=== PATIENT | male | born 1990 | race African-American/Black ===

== ENCOUNTER 2024-10-22 09:07 | Outpatient (REF) | payer OTHER, SELFPAY ==
[2024-10-22 13:16] LABS: MANUAL DIFF FLAG NO
[2024-10-22 13:23] LABS: Appearance Urine Clear; Glucose Urine UA Negative (Negative); PH 5.0 (5.0-9.0); Specific Gravity - Urine 1.020 (1.005-1.025)
[2024-10-22 13:31] LABS: Hematocrit 44.9 % (42.0-52.0); Hemoglobin 14.4 g/dl (14.0-18.0); Imm Gran Abs Auto 0.03 X10*3/uL (0.00-0.03); Imm Gran Pct Auto 0.3 % (0.0-0.4); Lymphocytes Absolute Auto 2.9 X10*3/uL (1.2-4.9); Mean Corpuscular HGB Conc 32.1 g/dl (31.0-36.0); Mean Corpuscular Hemoglobin 27.3 pg (27.0-33.0); Mean Corpuscular Volume 85.2 fL (80.0-98.0); NRBC Abs Auto 0.000 X10*3/uL (0.0-0.012); NRBC Pct Auto 0.0 /100WBC (0.0-0.2); Platelet Count 323 X10*3/uL (160-400); Red Blood Count 5.27 X10*6/uL (4.60-5.80); White Blood Count 9.6 X10*3/uL (4.8-10.8)
[2024-10-22 14:01] LABS: Alanine Aminotransferase 40 U/L (0-40); Albumin Level 4.7 g/dL (3.5-5.0); Alkaline Phosphatase 60 U/L (39-117); Anion Gap 14 (12-20); Aspartate Amino Transferase 37 U/L (5-37); Blood Urea Nitrogen 16 mg/dL (9-16); Calcium 9.4 mg/dL (8.4-10.2); Carbon Dioxide 27 mmol/L (22-29); Chloride 103 mmol/L (96-108); Cholesterol 233 mg/dL (<200); Estimated Glomerular Filt Rate > 60; HDL Cholesterol 55 mg/dL (>40); Potassium 4.5 mmol/L (3.3-5.1); Sodium 139 mmol/L (135-145); Total Protein 8.1 g/dL (6.5-8.0); Triglycerides 180 mg/dL (<150)
[2024-10-22 14:42] LABS: Free T4 (Free Thyroxine) 1.17 ng/dL (0.71-1.85)
[2024-10-22 15:30] LABS: CT PCR Urine NOT DETECTED (Not Detect.); NG PCR Urine NOT DETECTED (Not Detect.)
[2024-10-25 03:38] LABS: Syphilis Screen Nonreactive (Nonreactive)
[2024-10-25 03:51] LABS: HBS Num1 52.14 mIU/mL (0-7.99); HBsAGNum1 0.48 S/CO (0.00-0.99); HIV Num 1 0.05 S/CO (0.00-0.99); Hepatitis B Surface Antigen Negative (Negative); ~HepC Num1 0.12 S/CO (0.00-0.79); ~Hepatitis B Surface Antibody REACTIVE (Nonreactive); ~Hepatitis C Antibody Nonreactive (Nonreactive)
[2024-10-30 12:13] LABS: Chlamydia Pneumoniae Interp. Past Infection; Chlamydia Trachomatis IgA <1:16 titer (<1:16)
== END 2024-10-22 09:08 | disposition home or self-care (01) ==
LOC: HO.HKASLDS 09:07
PROVIDERS: PCP Student in an Organized Health Care Education/Training Program; Visit Provider Student in an Organized Health Care Education/Training Program
DX: Z00.00 Encounter for general adult medical examination without abnormal findings (principal); Z01.89 Encounter for other specified special examinations; Z13.9 Encounter for screening, unspecified; Z13.6 Encounter for screening for cardiovascular disorders; Z13.1 Encounter for screening for diabetes mellitus; Z13.220 Encounter for screening for lipoid disorders; J45.20 Mild intermittent asthma, uncomplicated; F41.1 Generalized anxiety disorder; E73.9 Lactose intolerance, unspecified; F12.90 Cannabis use, unspecified, uncomplicated; E66.812 Obesity, class 2; Z87.891 Personal history of nicotine dependence; Z68.37 Body mass index [BMI] 37.0-37.9, adult
CPT/HCPCS: 80053; 80061; 81003; 83036; 84439; 84443; 85025; 86631; 86632; 86706; 86780; 86803; 87340; 87389; 87491; 87591; 96160

== ENCOUNTER 2024-10-22 09:07 | Outpatient (AMB) | payer OTHER, SELFPAY ==
--- NOTE | 2024-10-22 09:19 | A.OFFPC_ITS ---
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 lab work requested. also mention acid reflect after meals more when eat dairy foods. 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 Accompanied by: Self / Same As Patient Allergies No Known Allergies Allergy (Verified 10/22/24 09:19) Tobacco use date assessed: 10/22/24 Dental Screening Dental Screen Date: 10/22/24 Did you have a dental visit in the last 12 months?: Yes Did you have a dental problem in the last 6 months where you did not have access to dental care?: No Was dental information given to patient?: Patient has dentist HPI HPI Comments History of Present Illness Details History of Present Illness The patient is a 34-year-old male presenting for a routine checkup and management of asthma and gastrointestinal symptoms. The patient has a history of asthma since , with exacerbations triggered by exposure to cats and cold weather. He had a recent emergency room visit in [place] after [place] due to an asthma exacerbation. He currently does not have any inhalers and requires a rescue inhaler for management. The patient reports gastrointestinal discomfort, particularly bloating and gas, after consuming dairy products, suggesting possible lactose intolerance. Symptoms typically occur hours after consumption and do not include diarrhea. The patient has been diagnosed with generalized anxiety disorder and is currently under treatment with buspirone, which he started today. He experiences social anxiety and has recently moved from [place] to [place] to access psychiatric care. He is scheduled to follow up with his psychiatrist next Friday to assess the effectiveness of the medication. Review of Systems - Respiratory: Reports asthma exacerbati ons triggered by cats and cold weather. Denies current dyspnea or wheezing. - Gastrointestinal: Reports bloating and gas after dairy consumption. Denies diarrhea. - Psychiatric: Reports anxiety and socia l anxiety. Denies depression. 10-point ROS reviewed and negative excep t as noted in HPI Physical Exam Gen: NAD, A&O x3 HEENT: NC/AT, PERRLA, EOMI, OP clear, MMM Neck: Supple, no LAD/JVD/bruit COR: RRR, S1 S2, no m/r/g Lungs: CTAB, BS equal bilat, no r/r/w Abd: NT/ND, +BS, no HSM, no mass/rebound/guarding Ext: No CCE, 2+ pulses Neuro: CN II-XII grossly intact, motor/sensory intact, reflexes 2+, gait normal Skin: WDI, no rash Assessment and Plan 1. Asthma The patient requires a rescue inhaler due to recent exacerbations. If frequent use is noted, a maintenance inhaler may be considered. Avoidance of known triggers such as cats and cold weather is advised. 2. Suspected lactose intolerance The patient is advised to trial lactase supplements before consuming dairy products to alleviate symptoms of bloating and gas. 3. Generalized anxiety disorder The patient has started buspirone and will follow up with his psychiatrist to evaluate the medication's effectiveness. Continued psychiatric support is recommended. 4. Preventative care A comprehensive metabolic panel, lipid screen, hemoglobin A1c, and STI screening are planned to establish a baseline for further health management. 5. Class 2 obesity Weight Management Counseling Provided diet and lifestyle counseling for weight management ( 4 minutes). Discussed: * Nutrition: reduce caloric intake, limit sugary drinks/processed foods, increase fruits/vegetables/lean protein. * Physical activity: >=50 min/week moderate-intensity + 2 days strength training. * Behavioral strategies: goal setting, self-monitoring, support resources. Patient ambivalent written resources and follow-up plan provided. Patient Instructions - Use the rescue inhaler as needed for a sthma symptoms. Avoid known triggers such as cats and cold weather. - Try lactase supplements before consumi ng dairy to reduce bloating and gas. - Continue taking buspirone as prescribe d and follow up with your psychiatrist to monitor its effectiveness. - Complete the recommended blood tests a nd screenings to establish a health baseline. [facility] Medical History (Updated 10/22/24 @ 10:07 by Diego Madsen MD) Class 2 obesity Lactose intolerance in adult Generalized anxiety disorder Mild intermittent asthma History of nicotine use Family History (Updated 10/22/24 @ 09:31 by Carlos Rg MA) Father Diabetes High blood pressure Mother High blood pressure Social History (Updated 10/22/24 @ 09:22 by Carlos Rg MA) Housing: House Alcohol intake: current Alcohol intake frequency: holidays/special occasions only Patient Tobacco Use Status: Former Tobacco user service: No Current occupational status: employed Cognitive needs: No Hearing needs: No Vision needs: No Questionnaire PHQ-9 Over the last 2 weeks, how often have you been bothered by any of the following problems? 1. Little interest or pleasure in doing things: nearly every day 2. Feeling down, depressed, or hopeless: nearly every day 3. Trouble falling or staying asleep, or sleeping too much: nearly every day 4. Feeling tired or having little energy: nearly every day 5. Poor appetite or overeating: nearly every day 6. Feeling bad about yourself - or that you are a failure or have let yourself or your family down: nearly every day 7. Trouble concentrating on things, such as reading the newspaper or watching television: nearly every day 8. Moving or speaking so slowly that other people could have noticed. Or the opposite - being so fidgety or restless that you have been moving around a lot more than usual: nearly every day 9. Thoughts that you would be better off or of hurting yourself in some way: not at all Total score: 24 Source: Developed by Drs. Raciel Delgado, Yessica Zazueta, Lucas Austin and colleagues, with an educational leonardo from [employer]. Thrive Questionnaire Date Thrive assessed: 10/22/24 I am a: Patient What is your living situation today?: I have a steady place to live Within the past 12 months, did the food you bought not last and you didn't have the money to get more?: Never true Within the past 12 months, did you worry whether your food would run out before you got money to buy more?: Never true Do you have trouble paying for medicines?: No Do you have trouble getting transportation to medical appointments?: No Do you have trouble paying your heating and electricity bill?: No Do you have trouble taking care of your child, family member or friend?: No Do you have trouble with day-to-day activities such as bathing, preparing meals, shopping, managing finances, etc.?: No Are you currently unemployed and looking for a job?: No Are you interested in more education?: No Please select the resources that you would like help with: None Currently or been in a relationship where the following occur: No concerns reported THRIVE Score: 0 AUDIT C Alcohol Use Questionnaire (AUDIT-C) 1. How often do you have a drink containing alcohol?: Monthly or less 2. How many drinks containing alcohol do you have on a typical day when you are drinking?: 1 or 2 3. How often do you have six or more drinks on one occasion?: Never Total Score: 1 LILLIAM-7 AMB Questionnaire LILLIAM-7 Date LILLIAM - 7 assessed: 10/22/24 Feeling nervous, anxious, or on edge: 3 = Nearly every day Not being able to stop or control worryin = Nearly every day Worrying too much about different things: 3 = Nearly every day Trouble relaxin = Nearly every day Being so restless that it is hard to sit still: 3 = Nearly every day Becoming easily annoyed or irritable: 3 = Nearly every day Feeling afraid as if something awful might happen: 3 = Nearly every day Total LILLIAM-7 score (0-4 normal; 5-9 mild; 10-14 moderate; 15-21 severe): 21 Source: Developed by Drs. Raciel Delgado, Yessica Zazueta, Lucas Austin and colleagues, with an educational leonardo from [employer]. ACT Questionnaire In the past 4 weeks, how much of the time did your asthma keep you from getting as much done at work, school or at home?: None of the time During the past 4 weeks, how often have you had shortness of breath?: Not at all During the past 4 weeks, how often did your asthma symptoms wake you up at night or earlier than usual in the morning?: Not at all During the past 4 weeks, how often have you had to use your rescue inhaler or nebulizer medication?: Not at all How would you rate your asthma control during the past 4 weeks?: Completely controlled Score: 25 Review of Systems Const Details: 10-point ROS reviewed and negative except as noted in HPI. Physical exam (Primary Care) 37.3 BMI Assessment/Plan discussion: High Tobacco/Smoking Status: Tobacco use Status Tobacco use date assessed 10/22/24 10/22/24 09:23 Patient Tobacco Use Status Never used Tobacco 10/22/24 09:23 PHQ-9: PHQ-9 Score PHQ-9: Total score 0 10/22/24 09:23 Thrive Assessment: Date of Thrive Assessment Date Thrive assessed 10/22/24 10/22/24 09:23 Currently or been in a relationship where the following occur: No concerns reported Const Other: * Gen: NAD, A&O x3 * HEENT: NC/AT, PERRLA, EOMI, OP clear, MMM * Neck: Supple, no LAD/JVD/bruit * COR: RRR, S1 S2, no m/r/g * Lungs: CTAB, BS equal bilat, no r/r/w * Abd: NT/ND, +BS, no HSM, no mass/rebound/guarding * Ext: No CCE, 2+ pulses * Neuro: CN II?XII grossly intact, motor/sensory intact, reflexes 2+, gait normal * Skin: WDI, no rash Coding Level of Care Code New Pt Level 3 (98604) Diagnoses Regular check-up Z00.00 Routine lab draw Z01.89 Encounter for screening, unspecified Z13.9 Hypertension screen Z13.6 Screening for diabetes mellitus Z13.1 Screening for lipoid disorders Z13.220 History of nicotine use Z87.891 Mild intermittent asthma J45.20 Generalized anxiety disorder F41.1 Lactose intolerance in adult E73.9 Class 2 obesity E66.812 Assessment & Plan Assessment & Plan (1) Regular check-up: Code(s): Z00.00 - Encounter for general adult medical examination without abnormal findings (2) Routine lab draw: Code(s): Z01.89 - Encounter for other specified special examinations (3) Encounter for screening, unspecified: Code(s): Z13.9 - Encounter for screening, unspecified (4) Hypertension screen: Code(s): Z13.6 - Encounter for screening for cardiovascular disorders (5) Screening for diabetes mellitus: Code(s): Z13.1 - Encounter for screening for diabetes mellitus (6) Screening for lipoid disorders: Code(s): Z13.220 - Encounter for screening for lipoid disorders (7) History of nicotine use: Code(s): Z87.891 - Personal history of nicotine dependence (8) Mild intermittent asthma: Code(s): J45.20 - Mild intermittent asthma, uncomplicated Category: Medical (9) Generalized anxiety disorder: Code(s): F41.1 - Generalized anxiety disorder Category: Medical (10) Lactose intolerance in adult: Code(s): E73.9 - Lactose intolerance, unspecified Category: Medical (11) Class 2 obesity: Code(s): E66.812 - Obesity, class 2 Category: Medical Plan
[2024-10-22 09:36] VITALS: BP 130/92; PULSE 78; RESP 16; TEMP 36.6; O2SAT 98; BMI 37.3
== END 2024-10-22 10:11 | disposition home or self-care (01) ==
LOC: HO.HMCFMS 09:07
PROVIDERS: PCP Student in an Organized Health Care Education/Training Program; Visit Provider Student in an Organized Health Care Education/Training Program
DX: J45.20 Mild intermittent asthma, uncomplicated (principal); E73.9 Lactose intolerance, unspecified; E66.812 Obesity, class 2; Z13.6 Encounter for screening for cardiovascular disorders; F41.1 Generalized anxiety disorder

== ENCOUNTER 2024-11-09 08:46 | Outpatient (AMB) | payer OTHER, SELFPAY ==
--- NOTE | 2024-11-09 08:49 | A.OFFPC_ITS ---
Vital Signs 11/09/24 08:57 Height 5 ft 7.44 in Weight 246 lb 2 oz BMI 38.0 BP 114/82 Blood Pressure Location Lt brachial Position Sitting Respiration 16 Pulse 84 Pulse Source Pulse Oximeter Temp 98.2 F Temp Source Oral Pulse Oximetry (%) 98 Oxygen Delivery Method Room Air Intake Visit Reasons: 2 week follow up Intake Note: hes here to set a PCP since he haven't have one in a long time. lab work requested. also mention acid reflect after meals more when eat dairy foods. 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 Accompanied by: Self / Same As Patient Allergies No Known Allergies Allergy (Verified 11/09/24 08:49) Tobacco use date assessed: 10/22/24 Dental Screening Dental Screen Date: 10/22/24 Did you have a dental visit in the last 12 months?: Yes Did you have a dental problem in the last 6 months where you did not have access to dental care?: No Was dental information given to patient?: Patient has dentist HPI HPI Comments History of Present Illness Details History of Present Illness The patient is a 34-year-old male presenting for lab results from previous visit Prediabetes: - The patient has been advised to see a receiving tank operator for dietary management to prevent progression to diabetes. - Lifestyle modifications including 150 minutes of moderate-intensity exercise per week have been recommended. Hyperlipidemia: - The patient has elevated cholesterol l evels, contributing to metabolic syndrome. - Dietary changes and increased physical activity have been recommended to manage lipid levels. Subclinical Hypothyroidism: - Thyroid function tests showed elevated thyroid-stimulating hormone with normal free T4, indicating subclinical hypothyroidism. - The patient is asymptomatic, and repea t thyroid function tests are planned in 6 to 12 weeks. Asthma: - The patient has a history of asthma, w hich contributes to elevated eosinophil levels. Allergic Rhinitis: - The patient experiences seasonal aller gies, managed with [id number]-sxtfxgh antihistamines like cetirizine. Anxiety: - The patient is currently on buspirone, which has shown improvement in anxiety symptoms. - The patient engages in therapeutic gil ing as a coping mechanism for anxiety. Review of Systems - Endocrine: Denies feeling cold, dry sk in, or hair loss. - Gastrointestinal: Denies constipation. - Respiratory: Reports seasonal allergie s with itchy throat and sneezing. - Neurological: Reports improvement in a nxiety symptoms with buspirone. 10-point ROS reviewed and negative excep t as noted in HPI Past Medical History - Asthma - Allergic Rhinitis - Anxiety Health Maintenance - Recommended 150 minutes of moderate-in tensity exercise per week. - Referral to a receiving tank operator for dietary management of prediabetes and hyperl ipidemia. - Repeat thyroid function tests in 6 to 12 weeks for subclinical hypothyroidism. - Recommended hepatitis B vaccination [facility]. Physical Exam General: Well-appearing, in no acute distress. Vital signs: Within normal limits. HEENT: Normocephalic, atraumatic. PERRLA, EOMI. Conjunctiva clear, sclera anicteric. Oropharynx clear, mucous membranes moist. TMs intact bilaterally. Neck: Supple, no lymphadenopathy, no thyromegaly, no JVD or carotid bruits. Cardiovascular: RRR, normal S1/S2, no murmurs, rubs, or gallops. Peripheral pulses 2+ and symmetric. No edema. Respiratory: Lungs clear to auscultation bilaterally, no wheezes, rales, or rhonchi. Normal effort. Abdomen: Soft, non-tender, non-distended. Normoactive bowel sounds. No hepatosplenomegaly, no masses. MSK: Full range of motion, no joint swelling or deformity. Normal gait. Skin: Warm, dry, intact. No rashes, lesions, or pallor. Neuro: Alert and oriented x3. Cranial nerves II-XII intact. Strength 5/5 throughout. Sensation intact. Reflexes 2+ symmetric. Normal coordination and gait. Psych: Appropriate mood and affect. Normal judgment and insight. Patient reports improvement in anxiety symptoms with buspirone, scoring reduced from 22 to 11 on anxiety scale. Engages in therapeutic activities such as fuentes for anxiety management. Plan 1. Prediabetes - Referral to a receiving tank operator for dietary management to prevent progression to diabetes. - Recommended 150 minutes of moderate-in tensity exercise per week. 2. Hyperlipidemia - Dietary changes and increased physical activity recommended to manage lipid levels. 3. Subclinical Hypothyroidism - Repeat thyroid function tests in 6 to 12 weeks to monitor thyroid status. 4. Asthma - Monitor asthma symptoms and manage wit h appropriate medications as needed. 5. Allergic Rhinitis - Use of caql-kev-iywrbwc antihistamines like cetirizine for symptom management. 6. Anxiety - Continue buspirone for anxiety managem ent, with noted improvement in symptoms. - Engage in therapeutic fuentes as a copi ng mechanism for anxiety. Discussion Notes During the visit, we discussed the importance of managing prediabetes and hyperlipidemia through lifestyle modifications, including diet and exercise. I explained the concept of subclinical hypothyroidism and the plan to repeat thyroid function tests in 6 to 12 weeks. We also reviewed the patient's asthma and allergic rhinitis management, emphasizing the use of swvg-wgh-jonbtcw medications. The patient's anxiety management with buspirone and therapeutic fuentes was also addressed. I recommended the hepatitis B vaccination series and encouraged the patient to follow up if symptoms worsen or new symptoms arise. Patient Instructions - Exercise for at least 150 minutes per week at moderate intensity. - Follow up with a receiving tank operator for diet edyta advice on managing prediabetes and high cholesterol. - Monitor thyroid symptoms and return fo r repeat tests in 6 to 12 weeks. - Use xamd-bhb-pyqwdfd antihistamines fo r allergy symptoms. - Continue taking buspirone for anxiety and engage in therapeutic activities. - Consider getting the hepatitis B vacci [place] series. [facility] Medical History Class 2 obesity Lactose intolerance in adult Generalized anxiety disorder Mild intermittent asthma History of nicotine use Family History Father Diabetes High blood pressure Mother High blood pressure Social History Housing: House Alcohol intake: current Alcohol intake frequency: holidays/special occasions only Patient Tobacco Use Status: Former Tobacco user service: No Current occupational status: unemployed Cognitive needs: No Hearing needs: No Vision needs: Yes (rx glasses) Questionnaire PHQ-9 Over the last 2 weeks, how often have you been bothered by any of the following problems? 1. Little interest or pleasure in doing things: not at all 2. Feeling down, depressed, or hopeless: not at all 3. Trouble falling or staying asleep, or sleeping too much: not at all 4. Feeling tired or having little energy: not at all 5. Poor appetite or overeating: not at all 6. Feeling bad about yourself - or that you are a failure or have let yourself or your family down: not at all 7. Trouble concentrating on things, such as reading the newspaper or watching television: not at all 8. Moving or speaking so slowly that other people could have noticed. Or the opposite - being so fidgety or restless that you have been moving around a lot more than usual: not at all 9. Thoughts that you would be better off or of hurting yourself in some way: not at all Total score: 0 Depression Screening Interpretation: Negative Depression Screening Done: Yes Source: Developed by Drs. Raciel Delgado, Yessica Zazueta, Lucas Austin and colleagues, with an educational leonardo from [employer]. Thrive Questionnaire Date Thrive assessed: 11/07/24 I am a: Patient What is your living situation today?: I choose not to answer this question Within the past 12 months, did the food you bought not last and you didn't have the money to get more?: I choose not to answer this question Within the past 12 months, did you worry whether your food would run out before you got money to buy more?: I choose not to answer this question Do you have trouble paying for medicines?: Yes Do you have trouble getting transportation to medical appointments?: No Do you have trouble paying your heating and electricity bill?: I choose not to answer this question Do you have trouble taking care of your child, family member or friend?: I choose not to answer this question Do you have trouble with day-to-day activities such as bathing, preparing meals, shopping, managing finances, etc.?: No Are you currently unemployed and looking for a job?: Yes Are you interested in more education?: No Please select the resources that you would like help with: None Currently or been in a relationship where the following occur: I choose not to answer THRIVE Score: 0 AUDIT C Alcohol Use Questionnaire (AUDIT-C) 1. How often do you have a drink containing alcohol?: Never 3. How often do you have six or more drinks on one occasion?: Never Total Score: 0 Score Reviewed/Action Taken: No LILLIAM-7 AMB Questionnaire LILLIAM-7 Date LILLIAM - 7 assessed: 10/22/24 Feeling nervous, anxious, or on edge: 0 = Not at all Not being able to stop or control worryin = Not at all Worrying too much about different things: 0 = Not at all Trouble relaxin = Not at all Being so restless that it is hard to sit still: 0 = Not at all Becoming easily annoyed or irritable: 0 = Not at all Feeling afraid as if something awful might happen: 0 = Not at all Total LILLIAM-7 score (0-4 normal; 5-9 mild; 10-14 moderate; 15-21 severe): 0 Source: Developed by Drs. Raciel Delgado, Yessica Zazueta, Lucas Austin and colleagues, with an educational leonardo from [employer]. Physical exam (Primary Care) Vital Signs: Last Vital Signs Temp 98.2 F 11/09/24 08:57 Pulse 84 11/09/24 08:57 Resp 16 11/09/24 08:57 BP 114/82 11/09/24 08:57 Pulse Ox 98 11/09/24 08:57 Oxygen Delivery Method Room Air 11/09/24 08:57 BMI result Body Mass Index 38.0 Tobacco/Smoking Status: Tobacco use Status Tobacco use date assessed 10/22/24 11/09/24 08:50 Patient Tobacco Use Status Former Tobacco user 11/09/24 08:50 PHQ-9: PHQ-9 Score PHQ-9: Total score 0 11/09/24 09:03 Depression Screening Interpretation: Negative Thrive Assessment: Date of Thrive Assessment Date Thrive assessed 11/07/24 11/09/24 08:50 Currently or been in a relationship where the following occur: I choose not to answer Coding Level of Care Code Est Pt Level 3 (67367) Diagnoses Mild intermittent asthma J45.20 Class 2 obesity E66.812 Encounter to discuss test results Z71.2 Prediabetes R73.03 Metabolic syndrome E88.810 Hyperlipidemia E78.5 Subclinical hypothyroidism E03.8 Eosinophilia D72.10 Assessment & Plan Assessment & Plan (1) Mild intermittent asthma: Code(s): J45.20 - Mild intermittent asthma, uncomplicated Category: Medical (2) Class 2 obesity: Code(s): E66.812 - Obesity, class 2 Category: Medical (3) Encounter to discuss test results: Code(s): Z71.2 - Person consulting for explanation of examination or test findings (4) Prediabetes: Code(s): R73.03 - Prediabetes (5) Metabolic syndrome: Code(s): E88.810 - Metabolic syndrome (6) Hyperlipidemia: Code(s): E78.5 - Hyperlipidemia, unspecified (7) Subclinical hypothyroidism: Code(s): E03.8 - Other specified hypothyroidism (8) Eosinophilia: Code(s): D72.10 - Eosinophilia, unspecified Plan Scribe Plan - Not visible on output:
[2024-11-09 08:57] VITALS: BP 114/82; PULSE 84; RESP 16; TEMP 36.8; O2SAT 98; BMI 38.0
== END 2024-11-09 09:22 | disposition home or self-care (01) ==
LOC: HO.HMCFMS 08:47
PROVIDERS: PCP Student in an Organized Health Care Education/Training Program; Visit Provider Student in an Organized Health Care Education/Training Program
DX: J45.20 Mild intermittent asthma, uncomplicated (principal); R73.03 Prediabetes; E78.5 Hyperlipidemia, unspecified; E03.8 Other specified hypothyroidism; D72.10 Eosinophilia, unspecified; E66.812 Obesity, class 2; Z68.33 Body mass index [BMI] 33.0-33.9, adult

== ENCOUNTER → 2024-11-09 08:46 | Outpatient (BNVA) | payer OTHER, SELFPAY | PROVIDERS: PCP Student in an Organized Health Care Education/Training Program; Visit Provider Student in an Organized Health Care Education/Training Program | DX: J45.20 Mild intermittent asthma, uncomplicated (principal); E66.812 Obesity, class 2; Z68.38 Body mass index [BMI] 38.0-38.9, adult; R73.03 Prediabetes; E88.810 Metabolic syndrome; E78.5 Hyperlipidemia, unspecified; E03.8 Other specified hypothyroidism; D72.10 Eosinophilia, unspecified; F41.9 Anxiety disorder, unspecified; Z79.899 Other long term (current) drug therapy; Z13.31 Encounter for screening for depression | CPT/HCPCS: 99212 ==

== ENCOUNTER 2024-12-21 08:28 | Outpatient (AMB) | payer OTHER, SELFPAY ==
--- NOTE | 2024-12-21 08:43 | A.OFFPC_ITS ---
Vital Signs 12/21/24 08:45 Height 5 ft 7.44 in BP 124/74 Blood Pressure Location Rt brachial Position Sitting Respiration 16 Pulse 79 Pulse Source Pulse Oximeter Temp 98 F Temp Source Oral Pulse Oximetry (%) 96 Oxygen Delivery Method Room Air Intake Visit Reasons: 6 week follow up Intake Note: hes here to set a PCP since he haven't have one in a long time. lab work requested. also mention acid reflect after meals more when eat dairy foods. 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 Accompanied by: Self / Same As Patient Allergies No Known Allergies Allergy (Verified 12/21/24 08:53) Medication List - Last Reconciled 12/21/24 by Diego Madsen MD buspirone 5 mg PO BID Tobacco use date assessed: 12/21/24 Dental Screening Dental Screen Date: 12/21/24 Did you have a dental visit in the last 12 months?: Yes Did you have a dental problem in the last 6 months where you did not have access to dental care?: No Was dental information given to patient?: Patient has dentist HPI HPI Comments History of Present Illness Details History of Present Illness The patient is a 34-year-old male presenting with a routine follow-up for chronic conditions and concerns for new symptoms related to possible carpal tunnel syndrome. Dermatitis: The patient reports a rash on his knee that commenced approximately 8-9 months ago. The rash was initially pruritic, leading to scratching and subsequent peeling. The pruritus has since resolved; however, the rash persists with an ashy appearance and is localized to the knee. He reports a history of childhood eczema and asthma. Possible Carpal Tunnel Syndrome: The patient describes wrist pain when pressure is applied, with occasional tingling sensations. The pain is sharp and radiates, primarily noticeable at night and during specific hand movements. The patient frequently uses his hands in his job, which likely contributes to his symptoms. The patient's father has had surgery for bilateral carpal tunnel syndrome, increasing the suspicion for a hereditary predisposition. Surgical History: - No prior surgical procedures. Social History: - Employment: Uses hands frequently at w ork, potential contributing factor for wrist pain. - Family history of carpal tunnel syndro me. Family History: - Father had surgery for bilateral carpa l tunnel syndrome. Past Medical History - Prediabetes - Elevated cholesterol - Subclinical hypothyroidism - Asthma - Allergic rhinitis - History of childhood eczema Health Maintenance - Dietary counseling referral was previo usly attempted for management of prediabetes, elevated cholesterol, and subclinical hypothyroidism. [facility] Medical History Class 2 obesity Lactose intolerance in adult Generalized anxiety disorder Mild intermittent asthma History of nicotine use Family History Father Diabetes High blood pressure Mother High blood pressure Social History Housing: House Alcohol intake: current Alcohol intake frequency: holidays/special occasions only Patient Tobacco Use Status: Former Tobacco user service: No Current occupational status: unemployed Cognitive needs: No Hearing needs: No Vision needs: Yes (rx glasses) Questionnaire Thrive Questionnaire Date Thrive assessed: 11/07/24 AUDIT C Alcohol Use Questionnaire (AUDIT-C) 1. How often do you have a drink containing alcohol?: Never 3. How often do you have six or more drinks on one occasion?: Never Total Score: 0 Score Reviewed/Action Taken: No LILLIAM-7 AMB Questionnaire LILLIAM-7 Date LILLIAM - 7 assessed: 10/22/24 Source: Developed by Drs. Raciel Delgado, Yessica Zazueta, Lucas Austin and colleagues, with an educational leonardo from [employer]. Review of Systems Narrative Review of Systems - Integumentary: Reports an ashy rash on the knee for 8-9 months, initially itchy. - Respiratory: Reports a history of asthma. - Musculoskeletal: Reports sharp pain and occasional tingling in the wrist, suggestive of carpal tunnel syndrome. - Allergic/Immunologic: Reports a history of allergic rhinitis. 10-point ROS reviewed and negative except as noted in HPI Physical exam (Primary Care) Vital Signs: Last Vital Signs Temp 98 F 12/21/24 08:45 Pulse 79 12/21/24 08:45 Resp 16 12/21/24 08:45 BP 124/74 12/21/24 08:45 Pulse Ox 96 12/21/24 08:45 Oxygen Delivery Method Room Air 12/21/24 08:45 Tobacco/Smoking Status: Tobacco use Status Tobacco use date assessed 12/21/24 12/21/24 08:48 Patient Tobacco Use Status Former Tobacco user 12/21/24 08:48 Thrive Assessment: Date of Thrive Assessment Date Thrive assessed 11/07/24 12/21/24 08:48 Narrative Physical Exam General: Well-appearing, in no acute distress. Vital signs: Within normal limits. HEENT: Normocephalic, atraumatic. PERRLA, EOMI. Conjunctiva clear, sclera anicteric. Oropharynx clear, mucous membranes moist. TMs intact bilaterally. Neck: Supple, no lymphadenopathy, no thyromegaly, no JVD or carotid bruits. Cardiovascular: RRR, normal S1/S2, no murmurs, rubs, or gallops. Peripheral pulses 2+ and symmetric. No edema. Respiratory: Lungs clear to auscultation bilaterally, no wheezes, rales, or rhonchi. Normal effort. Patient has a history of asthma. Abdomen: Soft, non-tender, non-distended. Normoactive bowel sounds. No hepatosplenomegaly, no masses. MSK: Full range of motion, no joint swelling or deformity. Normal gait. Patient reports knee popping. Patient reports sharp pain in the wrist with pressure and occasional tingling sensation, suggestive of early carpal tunnel syndrome. Skin: Warm, dry, intact. No rashes, lesions, or pallor. Patient reports a non- itchy, ashy area that was previously itchy and had small blood clots from scratching, consistent with dermatitis. No current rash observed. Neuro: Alert and oriented x3. Cranial nerves II-XII intact. Strength 5/5 throughout. Sensation intact. Reflexes 2+ symmetric. Normal coordination and gait. Psych: Appropriate mood and affect. Normal judgment and insight. Coding Level of Care Code Est Pt Level 4 (08091) Diagnoses Mild intermittent asthma J45.20 Class 2 obesity E66.812 Dermatitis L30.9 Paresthesias in left hand R20.2 Sharp pain R52 Assessment & Plan Assessment & Plan (1) Mild intermittent asthma: Code(s): J45.20 - Mild intermittent asthma, uncomplicated Category: Medical (2) Class 2 obesity: Code(s): E66.812 - Obesity, class 2 Category: Medical (3) Dermatitis: Code(s): L30.9 - Dermatitis, unspecified (4) Paresthesias in left hand: Code(s): R20.2 - Paresthesia of skin (5) Sharp pain: Code(s): R52 - Pain, unspecified Plan Consent The patient provided verbal consent for the evaluation and management of his chronic conditions and dermatitis. Risks and benefits of treatment, including topical steroid use, were discussed. For possible carpal tunnel syndrome, conservative treatments, including wrist bracing and ibuprofen use, were dis cussed with consent obtained for this management plan. The patient also agreed to follow-up evaluations should symptoms persist. Patient was informed and verbally consented to the use of an ambient scribe for clinic note documentation during this visit. Plan 1. Dermatitis - Prescribe topical steroid cream, apply for 7 days. - Advise follow-up if rash does not improve. 2. Prediabetes, Elevated Cholesterol, Subclinical Hypothyroidism - The visit served as a continuing checkup for these conditions. - Will continue to monitor. 3. Possible Carpal Tunnel Syndrome - Conservatively manage with wrist brace at night and daytime. - Use ibuprofen for symptomatic relief. - Consider further interventions if symptoms do not improve in 2 months. Discussion Notes I discussed with the patient that the rash on the knee is likely dermatitis, supported by his history of eczema and asthma, recommending topical steroids as management. Wrist pain is suspect for early carpal tunnel syndrome, given the p atient's frequent hand usage at work and a strong family history. I've advised a conservative approach with bracing and ibuprofen before considering invasive treatment. We also reviewed his chronic conditions, noting no immediate changes to their management, and reiterated the importance of dietary interventions for prediabetes and hyperlipidemia. Patient Instructions - Apply the steroid cream to the rash on your knee for 7 days. - Wear a wrist brace at night and when using your hands during the day. - Take ibuprofen as needed for wrist pain. - If symptoms of either condition persist or worsen, please schedule a follow-up appointment. Medical Decision Making The patient's symptoms and history strongly suggest dermatitis for the persistent rash and potential carpal tunnel syndrome for the wrist pain. His presentation of wrist pain, frequent hand usage, and family history support this diagnosis. The approach is conservative, utilizing topical and physical support with clear criteria for reassessment of persistent symptoms, reflecting a rational strategy respecting both risk and efficacy parameters. Monitoring his chronic conditions remains continuous, given their stable presentation without acute changes. Total time spent caring for the patient today was 30 minutes. This includes time spent before the visit reviewing the chart, time spent documenting, and time spent reviewing laboratory results, diagnostic imaging, medications, performing a medically necessary evaluation, counseling on diagnoses, care coordination..
[2024-12-21 08:45] VITALS: BP 124/74; PULSE 79; RESP 16; TEMP 36.6; O2SAT 96
== END 2024-12-21 08:53 | disposition home or self-care (01) ==
LOC: HO.HMCFMS 08:28
PROVIDERS: PCP Student in an Organized Health Care Education/Training Program; Visit Provider Student in an Organized Health Care Education/Training Program
DX: J45.20 Mild intermittent asthma, uncomplicated (principal); E66.812 Obesity, class 2; L30.9 Dermatitis, unspecified; R20.2 Paresthesia of skin; R52 Pain, unspecified

== ENCOUNTER → 2024-12-21 08:28 | Outpatient (BNVA) | payer OTHER, SELFPAY | PROVIDERS: PCP Student in an Organized Health Care Education/Training Program; Visit Provider Student in an Organized Health Care Education/Training Program | DX: J45.20 Mild intermittent asthma, uncomplicated (principal); E66.812 Obesity, class 2; L30.9 Dermatitis, unspecified; R20.2 Paresthesia of skin; R52 Pain, unspecified | CPT/HCPCS: 99212 ==

== ENCOUNTER 2025-01-27 21:06 | Emergency (ER) | payer OTHER, SELFPAY ==
--- NOTE | ~2025-01-27 | XR_ITS ---
CLINICAL HISTORY: injury pain after fall 3 view right ankle Comparison: None provided Findings: No acute fractures. Ankle mortise intact. Small distal Achilles enthesophyte. Tiny plantar heel spur. No erosions. No arthritic changes. No ankle effusion. No radiopaque foreign body. IMPRESSION: Mild ankle swelling. No fracture. This document has been electronically signed by: Guillermo Davey MD on 01/27/2025 22:58:06
[2025-01-27 21:39] VITALS: BP 121/61; PULSE 84; RESP 18; TEMP 36.8; O2SAT 95; BMI 38.4
--- NOTE | 2025-01-27 23:47 | ED_ITS ---
HPI - Extremity Injury (Lower) General Chief Complaint: Extremity Injury, Lower Stated Complaint: Knee Leg Pain Time Seen by Provider: 01/27/25 23:14 History of Present Illness ED Provider: Rivka Alfaro NP HPI Narrative: But a 4-year-old male history significant for GERD, asthma, nicotine use, obesity presents to the ED for evaluation of right-sided ankle pain. Patient reports that he was going down the stairs outside of his home when he slipped on ice and accidentally rolled the right ankle. He reports enrolled pain with ambulation. He reports some swelling of the ankle. No numbness or tingling in the toes or feet. No loss of strength, or sensation. Range of motion is intact. He has tried resting, icing the area, elevating it with not much relief. No OTC medications provided at home. No fall, head strike, LOC. No chest pain or pressure, shortness the ER for vomiting, urinary complaints. Related Data Home Medications ?Medication ?Instructions ?Recorded ?Confirmed buspirone 5 mg tablet 5 mg PO BID 10/22/24 5 Previous Rx's ?Medication ?Instructions ?Recorded triamcinolone acetonide 0.1 % 1 appl topical BID #80 g giovani 12/21/24 topical cream Allergies Allergy/AdvReac Type Severity Reaction Status Date / Time No Known Allergies Allergy Verified 01/27/25 21:40 Review of Systems Review of Systems: ROS is otherwise negative unless mentioned in HPI. [facility] Past Medical History Medical History Class 2 obesity Lactose intolerance in adult Generalized anxiety disorder Mild intermittent asthma History of nicotine use Family History Family History Father Diabetes High blood pressure Mother High blood pressure Social History Social History Housing: House Alcohol intake: current Alcohol intake frequency: holidays/special occasions only Patient Tobacco Use Status: Former Tobacco user Advance Directives: No Advance Directives Information Provided: Yes service: No Current occupational status: unemployed Cognitive needs: No Hearing needs: No Vision needs: Yes (rx glasses) Physical Exam Exam: Exam: Nursing notes and vital signs reviewed. Constitutional: Well-appearing, NAD. Alert. Oriented X3. Eyes: EOMI. ENT: Pharynx normal. Neck: Normal inspection. Neck supple. CVS: Pulses normal. Respiratory: No respiratory distress. Extremities: No lower extremity edema. Mild edema to the right ankle. ROM intact. CSM intact. 2+ pulses. Neuro: Oriented X 3. No motor deficit. Vital Signs: Vital Signs: Last Vital Signs Temp 98.3 F 01/28/25 00:02 Pulse 84 01/28/25 00:02 Resp 18 01/28/25 00:02 BP 121/61 01/28/25 00:02 Pulse Ox 95 01/28/25 00:02 O2 Del Method Room Air 01/28/25 00:02 BMI result Body Mass Index 38.4 Medications Administered Discontinued Medications Generic Name Dose Route Start Last Admin Trade Name Freq PRN Reason Stop Dose Admin Acetaminophen 975 mg 01/27/25 23:51 01/28/25 00:01 Acetaminophen 325 Mg Tablet PO 01/27/25 23:52 975 mg ONCE ONE Administration Medical Decision Making Medical Decision Making MDM Narrative: 11:51 PM 01/27/2025 (Rivka Alfaro NP): Upon my assessment, there is mild swelling to the right ankle. The x-ray was ordered by the triage provider, which shows no evidence of any acute fracture. This is likely an acute ankle sprain. Range of motion is intact. The source of his pain is likely due to swelling, which I discussed with him. I do recommend rice, as well as nonweightbearing until tolerated. He was given a dose of Tylenol while in the ED. He is also given crutches, and Walt bandage. He was agreeable to the plan of care. I have provided him Orthopedics follow-up should he require it. He was also given a work note. Provided return precautions to the ED, for which he is agreeable. Differential Diagnosis Differential Diagnoses: The differential diagnosis associated with the presentation includes Sprain, fracture, dislocation Admission/Observation Consideration of admission/observation: Escalation of care including admission/observation considered (Not indicated) Radiology Impression Discussion of test interpretation with radiology: I have reviewed the radiologist's reading. Radiologist Impression: XR Ankle Right IMPRESSION: Mild ankle swelling. No fracture. Independent Historian Clinical information obtained from an independent historian. History obtained from or confirmed by: Spouse External Record Review External record reviewed: Office record and Primary care record Social Determinants Patient?s care significantly limited by Social Determinants of Health including: Problems related to primary support group Discharge Plan Discharge Clinical Impression: Right ankle sprain Qualifiers: Encounter type: initial encounter Involved ligament of ankle: unspecified ligament Qualified Code(s): S93.401A - Sprain of unspecified ligament of right ankle, initial encounter Patient Disposition: Home, Self-Care Instructions: Ankle Sprain (ED) Additional Instructions: As we discussed, the x-ray here shows no acute fracture. You likely have an acute ankle sprain. Please engage in rice, which is rest, ice, compression, elevation of the affected that extremity, remain nonweightbearing until tolerated. We have given you crutches in the ER, as well as an Walt bandage. We also gave you Tylenol. Please use [id number] Tylenol, ibuprofen as needed for pain. With any worsening complaints at any time, return back to the ED for additional assessment. I have listed orthopedics if you need them below. Prescriptions: No Action buspirone 5 mg tablet 5 mg PO BID triamcinolone acetonide 0.1 % cream 1 appl topical BID Qty: 80 0RF Referrals: [facility] [place] Orth[facility] Surgeons [Provider Group] Diego Madsen MD [Primary Care Provider, Internal Medicine] Stand Alone Forms: Work/School Release Interventions: ED Discharge Assessment Last Done: 01/28/25 00:02 Print Language: Thai
--- OUTSIDE RECORDS SUMMARY | 2025-01-27 23:55 | XMS_ITS ---
Author Organization Unknown ENCOUNTERS Encounter Performer Location Date Diagnosis Diagnosis Status Pre Admit [facility] ED Physician [address] [address] [id number] *Note: Encounters from your own facility or health system may be excluded. Allergies, Adverse Reactions, Alerts Allergen Type Severity Identification Date Medications Name Date Quantity Days Supplied GPI Number
[2025-01-28 00:02] VITALS: BP 121/61; PULSE 84; RESP 18; TEMP 36.8; O2SAT 95
== END 2025-01-28 00:18 | disposition home or self-care (01) ==
PROVIDERS: Emergency Provider Emergency Medicine; PCP Student in an Organized Health Care Education/Training Program
DX: S93.401A Sprain of unspecified ligament of right ankle, initial encounter (principal); M25.571 Pain in right ankle and joints of right foot; W00.0XXA Fall on same level due to ice and snow, initial encounter; Y93.9 Activity, unspecified; Y92.9 Unspecified place or not applicable; Y99.8 Other external cause status
CPT/HCPCS: 73600; 99283

== ENCOUNTER → 2025-01-27 22:06 | Outpatient (BNV) | payer OTHER, SELFPAY | PROVIDERS: PCP Student in an Organized Health Care Education/Training Program; Visit Provider Radiology Diagnostic Radiology | DX: R22.41 Localized swelling, mass and lump, right lower limb (principal); Z04.3 Encounter for examination and observation following other accident | CPT/HCPCS: 73600 ==